=== PATIENT | female | born 1950 | race Two or more races ===

== ENCOUNTER 2020-07-22 10:59 | Day surgery (SDC) | payer OTHER ==
[~2020-07-22 10:59] MED LIST: FLOVENT DISKUS50 MCG IH; FOLIC ACID0.8 M1 PO; GLIMEPIRIDE1 MG; IRON325 MG PO; LOSARTAN POTASS50 MG PO; NEURONTIN800 MG PO; NO RECUERDA NOMBRE; SINGULAIR10 MG PO; SODIUM BICARBO650 MG PO
== END 2020-07-22 20:15 | disposition home or self-care (01) ==
LOC: CIR.AMB 10:59
PROVIDERS: ATTEND Orthopaedic Surgery
DX: S42.241A 4-part fracture of surgical neck of right humerus, initial encounter for closed fracture (principal); M75.121 Complete rotator cuff tear or rupture of right shoulder, not specified as traumatic; Z20.828 Contact with and (suspected) exposure to other viral communicable diseases
CPT/HCPCS: 24515; 23125; 23420; C1776

== ENCOUNTER → 2020-08-13 11:01 | Outpatient (CLI) | payer OTHER | END | disposition home or self-care (01) | LOC: LAB 11:01 | PROVIDERS: ATTEND Orthopaedic Surgery | DX: E55.9 Vitamin D deficiency, unspecified (principal); E21.3 Hyperparathyroidism, unspecified; M81.8 Other osteoporosis without current pathological fracture; E56.1 Deficiency of vitamin K; M85.89 Other specified disorders of bone density and structure, multiple sites; E88.89 Other specified metabolic disorders ==

== ENCOUNTER 2020-08-20 12:37 | Outpatient (CLI) | payer OTHER | END 2020-08-20 13:16 | disposition home or self-care (01) | LOC: TOM 12:37 → RAD 12:37 → TOM 13:15 → RAD 13:16 | PROVIDERS: ATTEND Orthopaedic Surgery | DX: S42.241D 4-part fracture of surgical neck of right humerus, subsequent encounter for fracture with routine healing (principal) ==

== ENCOUNTER 2020-09-10 09:51 | Outpatient (CLI) | payer OTHER | END 2020-09-10 09:56 | disposition home or self-care (01) | LOC: RAD 09:51 | PROVIDERS: ATTEND Orthopaedic Surgery | DX: S42.241D 4-part fracture of surgical neck of right humerus, subsequent encounter for fracture with routine healing (principal) ==

== ENCOUNTER 2020-12-04 12:46 | Outpatient (CLI) | payer OTHER ==
[2021-01-29] MEDS ORDERED: COZAAR50 MG PO (14:10)
== END 2020-12-04 12:50 | disposition home or self-care (01) ==
LOC: RAD 12:46
PROVIDERS: ATTEND Orthopaedic Surgery
DX: M25.511 Pain in right shoulder (principal); M79.621 Pain in right upper arm

== ENCOUNTER 2021-01-13 07:06 | Outpatient (CLI) | payer OTHER ==
[2021-01-29] MEDS ORDERED: COZAAR50 MG PO (14:10)
== END 2021-01-13 15:00 | disposition home or self-care (01) ==
LOC: LAB 07:06 → RAD 07:06 → LAB 15:00
PROVIDERS: ATTEND Orthopaedic Surgery
DX: D64.89 Other specified anemias (principal); E88.89 Other specified metabolic disorders; D68.8 Other specified coagulation defects; N39.0 Urinary tract infection, site not specified; Z22.322 Carrier or suspected carrier of Methicillin resistant Staphylococcus aureus; I49.8 Other specified cardiac arrhythmias; I10 Essential (primary) hypertension; M24.511 Contracture, right shoulder; Z76.89 Persons encountering health services in other specified circumstances

== ENCOUNTER 2021-02-02 08:49 | Day surgery (SDC) | payer OTHER ==
[~2021-02-02 08:49] MED LIST changes: +COZAAR50 MG PO
== END 2021-02-02 14:50 | disposition home or self-care (01) ==
LOC: CIR.AMB 08:49
PROVIDERS: ATTEND Orthopaedic Surgery
DX: M24.511 Contracture, right shoulder (principal); M75.41 Impingement syndrome of right shoulder; M65.811 Other synovitis and tenosynovitis, right shoulder; Z20.822 Contact with and (suspected) exposure to COVID-19